=== PATIENT | female | born 1980 | race Caucasian/White ===

== ENCOUNTER 2017-03-07 10:57 | Emergency (ER) | payer MEDICARE ==
[2014-07-04 18:40] VITALS: BMI 35.6
[~2017-03-07 10:57] MED LIST: BENADRYL25 MG PO; HYDROCODONE-APA1 TAB PO; IBUPROFEN800 MG PO; KEFLEX500 MG PO; NICODERM C1 PATCH .3 TRANSDERM; STEROID INHALER INH
== END 2017-03-07 13:01 | disposition home or self-care (01) ==
LOC: D.ER 10:57
DX: L02.412 Cutaneous abscess of left axilla (principal); K21.9 Gastro-esophageal reflux disease without esophagitis; M79.7 Fibromyalgia; G47.00 Insomnia, unspecified; M06.9 Rheumatoid arthritis, unspecified

== ENCOUNTER 2017-03-10 06:47 | Emergency (ER) | payer MEDICARE ==
[2014-07-04 18:40] VITALS: BMI 35.6
[2017-03-10 07:47] LABS: BASOPHILS 0.2 % (0-2); EOSINOPHILS 0.2 % (0-7); HEMATOCRIT 48.3 % (36.0-48.0); HEMOGLOBIN 16.9 g/dL (12-16); IMMATURE GRANULOCYTES 0.2 % (0-5); LYMPHOCYTES 24.2 % (15-50); MCH 31.9 pg (26.0-34.0); MCV 91.1 fL (80.0-100.0); MEAN PLATELET VOLUME 11.9 fL (7.4-10.4); MONOCYTES 12.6 % (2-11); NEUTROPHILS 62.6 % (40-80); RDW 13.2 % (11.5-14.5); WBC 4.5 10x3/uL (4.8-10.8)
[2017-03-10 07:51] LABS: PLATELET COUNT 142 10x3/uL (130-400)
[2017-03-10 08:05] LABS: ALBUMIN 3.6 g/dL (3.4-5.0); ALKALINE PHOSPHATASE 116 U/L (46-116); ALT (SGPT) 76 U/L (10-68); BILIRUBIN - TOTAL 0.72 mg/dL (0.2-1.3); CALC OSMOLALITY 269 mosm/kg (275-300); CALCIUM 9.2 mg/dL (8.5-10.1); CHLORIDE - SERUM 96 mmol/L (98-107); CREATININE - SERUM 0.9 mg/dL (0.6-1.3); GLUCOSE 208 mg/dL (74-106); POTASSIUM - SERUM 4.2 mmol/L (3.5-5.1); PROTEIN - SERUM 8.2 g/dL (6.4-8.2); SODIUM 131 mmol/L (136-145); UREA NITROGEN 14 mg/dL (7-18); eGFR NON AFRICAN AMERICAN 75 mL/min (90-120)
[2017-03-10 08:21] LABS: APPEARANCE SLT CLOUDY (CLEAR); BACTERIA MODERATE /hpf (NONE SEEN); BILIRUBIN NEGATIVE (NEGATIVE); COLOR DK YELLOW (YELLOW); GLUCOSE NEGATIVE (NEGATIVE); KETONE LARGE mg/dL (NEGATIVE); LEUKOCYTE ESTERASE TRACE (NEGATIVE); MUCUS <1+ /lpf (NONE SEEN); NITRITE NEGATIVE (NEGATIVE); PROTEIN NEGATIVE (NEGATIVE); SPECIFIC GRAVITY 1.015 (1.005-1.020); WHITE CELLS - URINE OCC /hpf (0-5)
== END 2017-03-10 09:14 | disposition home or self-care (01) ==
LOC: D.ER 06:47
PROVIDERS: Emergency Medicine
DX: L02.412 Cutaneous abscess of left axilla (principal); R11.2 Nausea with vomiting, unspecified; E86.0 Dehydration

== ENCOUNTER 2017-04-17 21:41 | Emergency (ER) | payer MEDICARE ==
[2014-07-04 18:40] VITALS: BMI 35.6
== END 2017-04-17 22:40 | disposition home or self-care (01) ==
LOC: D.ER 21:41
DX: M54.12 Radiculopathy, cervical region (principal); F17.200 Nicotine dependence, unspecified, uncomplicated

== ENCOUNTER 2017-10-22 11:00 | Emergency (ER) | payer MEDICARE ==
[2014-07-04 18:40] VITALS: BMI 35.6
[2017-10-22 11:57] LABS: COLOR YELLOW (YELLOW)
[2017-10-22 11:58] LABS: APPEARANCE CLOUDY (CLEAR); BILIRUBIN NEGATIVE (NEGATIVE); GLUCOSE 1000 mg/dL (NEGATIVE); KETONE SMALL mg/dL (NEGATIVE); NITRITE NEGATIVE (NEGATIVE); PROTEIN NEGATIVE (NEGATIVE); UROBILINOGEN NORMAL (NORMAL)
[2017-10-22 12:01] LABS: RED CELLS - URINE 0-5 /hpf (0-5); WHITE CELLS - URINE 0-5 /hpf (0-5)
[2017-10-22 12:02] LABS: MUCUS NONE SEEN /lpf (NONE SEEN)
[2017-10-22 12:05] LABS: BACTERIA MODERATE /hpf (NONE SEEN)
== END 2017-10-22 13:45 | disposition home or self-care (01) ==
LOC: D.ER 11:00
PROVIDERS: Emergency Medicine
DX: K02.9 Dental caries, unspecified (principal); K08.89 Other specified disorders of teeth and supporting structures; K04.7 Periapical abscess without sinus; N76.0 Acute vaginitis; R81 Glycosuria; K21.9 Gastro-esophageal reflux disease without esophagitis; F17.200 Nicotine dependence, unspecified, uncomplicated

== ENCOUNTER 2017-11-30 23:21 | Emergency (ER) | payer MEDICARE ==
[2014-07-04 18:40] VITALS: BMI 35.6
[2017-12-01 00:18] LABS: HEMATOCRIT 45.3 % (36.0-48.0); HEMOGLOBIN 15.8 g/dL (12-16); LYMPHOCYTES 13.7 % (15-50); MCH 31.2 pg (26.0-34.0); MCHC 34.9 g/dL (31.0-37.0); MCV 89.3 fL (80.0-100.0); MEAN PLATELET VOLUME 11.4 fL (7.4-10.4); NEUTROPHILS 80.6 % (40-80); PLATELET COUNT 170 10x3/uL (130-400); RBC 5.07 10x6/uL (4.00-5.40); RDW 13.1 % (11.5-14.5); WBC 10.9 10x3/uL (4.8-10.8)
[2017-12-01 00:34] LABS: ALBUMIN 3.5 g/dL (3.4-5.0); ALKALINE PHOSPHATASE 114 U/L (46-116); ALT (SGPT) 47 U/L (10-68); CALC OSMOLALITY 275 mosm/kg (275-300); CALCIUM 8.4 mg/dL (8.5-10.1); CHLORIDE - SERUM 97 mmol/L (98-107); CREATININE - SERUM 0.8 mg/dL (0.6-1.3); POTASSIUM - SERUM 3.8 mmol/L (3.5-5.1); PROTEIN - SERUM 7.4 g/dL (6.4-8.2); SODIUM 132 mmol/L (136-145); UREA NITROGEN 11 mg/dL (7-18); eGFR NON AFRICAN AMERICAN 86 mL/min (90-120)
[2017-12-01 00:36] LABS: GLUCOSE 314 mg/dL (74-106)
== END 2017-12-01 01:03 | disposition home or self-care (01) ==
LOC: D.ER 23:21
PROVIDERS: Family Medicine
DX: J20.9 Acute bronchitis, unspecified (principal); F17.200 Nicotine dependence, unspecified, uncomplicated

== ENCOUNTER 2018-03-18 01:34 | Emergency (ER) | payer MEDICARE ==
[~2018-03-18] VITALS: Ht 162.6 cm; Wt 75.0 kg
[2018-03-18 02:03] VITALS: Ht 162.6 cm; Wt 75.0 kg
[2018-03-18 03:08] LABS: BASOPHILS 0.2 % (0-2); EOSINOPHILS 0.8 % (0-7); HEMATOCRIT 43.9 % (36.0-48.0); HEMOGLOBIN 15.6 g/dL (12-16); IMMATURE GRANULOCYTES 0.3 % (0-5); LYMPHOCYTES 21.2 % (15-50); MCH 31.5 pg (26.0-34.0); MCHC 35.5 g/dL (31.0-37.0); MCV 88.7 fL (80.0-100.0); MEAN PLATELET VOLUME 11.3 fL (7.4-10.4); NEUTROPHILS 71.5 % (40-80); PLATELET COUNT 202 10x3/uL (130-400); RBC 4.95 10x6/uL (4.00-5.40); RDW 12.8 % (11.5-14.5); WBC 10.6 10x3/uL (4.8-10.8)
[2018-03-18 03:26] LABS: ALBUMIN 3.5 g/dL (3.4-5.0); ALKALINE PHOSPHATASE 123 U/L (46-116); ALT (SGPT) 35 U/L (10-68); CALC OSMOLALITY 275 mosm/kg (275-300); CARBON DIOXIDE 24.8 mmol/L (21.0-32.0); CHLORIDE - SERUM 97 mmol/L (98-107); CREATININE - SERUM 0.6 mg/dL (0.6-1.3); GLUCOSE 348 mg/dL (74-106); PROTEIN - SERUM 7.6 g/dL (6.4-8.2); SODIUM 131 mmol/L (136-145); UREA NITROGEN 10 mg/dL (7-18); eGFR NON AFRICAN AMERICAN > 90 mL/min (90-120)
[2018-03-18] MEDS ORDERED: GLUCOPHAGE500 MG PO (06:42)
[2018-03-18] MEDS ORDERED: HYDROCODON-ACE1 EAC7 PO (06:42)
[2018-03-18] MEDS ORDERED: KEFLEX500 MG PO (06:42)
[2018-03-18] MEDS ORDERED: BACTRIM DS TABL1 TAB PO (06:42)
[2018-03-18 07:10] VITALS: BP 104/61
== END 2018-03-18 07:10 | disposition home or self-care (01) ==
LOC: D.ER 01:34
PROVIDERS: Emergency Medicine
DX: N76.4 Abscess of vulva (principal); R73.9 Hyperglycemia, unspecified; F17.200 Nicotine dependence, unspecified, uncomplicated

== ENCOUNTER 2018-05-25 23:34 | Emergency (ER) | payer MEDICARE ==
[~2018-05-25] VITALS: Ht 162.6 cm; Wt 99.8 kg
[~2018-05-25 23:34] MED LIST changes: +BACTRIM DS TABL1 TAB PO; +GLUCOPHAGE500 MG PO; +HYDROCODON-ACE1 EAC7 PO
[2018-05-25 23:36] VITALS: Ht 162.6 cm; Wt 99.8 kg
[2018-05-26 00:18] LABS: ALBUMIN 3.5 g/dL (3.4-5.0); ALKALINE PHOSPHATASE 107 U/L (46-116); ALT (SGPT) 49 U/L (10-68); BASOPHILS 0.3 % (0-2); BILIRUBIN - TOTAL 0.35 mg/dL (0.2-1.3); CALC OSMOLALITY 285 mosm/kg (275-300); CALCIUM 8.5 mg/dL (8.5-10.1); CARBON DIOXIDE 27.6 mmol/L (21.0-32.0); CHLORIDE - SERUM 97 mmol/L (98-107); CREATININE - SERUM 0.8 mg/dL (0.6-1.3); EOSINOPHILS 0.9 % (0-7); GLUCOSE 386 mg/dL (74-106); HEMATOCRIT 42.8 % (36.0-48.0); HEMOGLOBIN 15.5 g/dL (12-16); IMMATURE GRANULOCYTES 0.3 % (0-5); LYMPHOCYTES 26.8 % (15-50); MCH 31.7 pg (26.0-34.0); MCHC 36.2 g/dL (31.0-37.0); MCV 87.5 fL (80.0-100.0); MEAN PLATELET VOLUME 11.3 fL (7.4-10.4); MONOCYTES 6.2 % (2-11); NEUTROPHILS 65.5 % (40-80); PLATELET COUNT 229 10x3/uL (130-400); POTASSIUM - SERUM 3.9 mmol/L (3.5-5.1); PROTEIN - SERUM 7.3 g/dL (6.4-8.2); RBC 4.89 10x6/uL (4.00-5.40); RDW 12.8 % (11.5-14.5); SODIUM 135 mmol/L (136-145); UREA NITROGEN 12 mg/dL (7-18); WBC 6.9 10x3/uL (4.8-10.8); eGFR NON AFRICAN AMERICAN 85 mL/min (90-120)
[2018-05-26] MEDS ORDERED: ATIVAN1 MG PO (00:25)
[2018-05-26 00:51] VITALS: BP 132/84
== END 2018-05-26 00:52 | disposition home or self-care (01) ==
LOC: D.ER 23:34
PROVIDERS: Emergency Medicine
DX: F41.9 Anxiety disorder, unspecified (principal); F17.200 Nicotine dependence, unspecified, uncomplicated